=== PATIENT | male | born 1945 | race Caucasian/White ===

== ENCOUNTER 2023-06-20 19:05 | Emergency (ER) | payer OTHER, SELFPAY ==
[2023-06-20 19:06] VITALS: BMI 31.1
[2023-06-20 19:08] VITALS: BP 142/80
[2023-06-20 19:28] LABS: % Basophils 0.3 % (0-2); % Eosinophils 3.6 % (0-6); % Immature Granulocytes 0.1 % (0-0.5); % Lymphocytes 25.9 % (20.5-51.1); % Monocytes 12.1 % (1.7-9.3); Absolute Eosinophils 0.2 10^3/uL (0-0.7); Absolute Lymphocytes 1.8 10^3/uL (1.2-3.4); Absolute Monocytes 0.8 10^3/uL (0.1-0.6); Absolute Neutrophils 3.9 10^3/uL (1.4-6.5); Hematocrit 44.2 % (39.0-52.0); Hemoglobin 15.5 g/dL (13.0-18.0); Mean Corp Hgb Conc. 35.1 g/dL (33.0-37.0); Mean Corpuscular Hgb 33.3 pg (27.0-31.0); Mean Corpuscular Volume 95.1 fL (80.0-94.0); Mean Platelet Volume 8.9 fL (7.4-10.4); Nucleated Red Blood Cells % 0 % (-); Platelet Count 216 10^3/uL (130-400); Red Blood Cell Count 4.65 10^6/uL (4.70-6.10); Red Cell Dist. Width 14.6 % (11.5-14.5); White Blood Cell Count 6.8 10^3/uL (4.8-10.8)
[2023-06-20 19:30] LABS: Urine Albumin Negative (Neg - Trace); Urine Bilirubin Negative (Negative); Urine Character Clear (Clear); Urine Color Yellow; Urine Glucose Negative (Negative); Urine Ketone Negative (Negative); Urine Leukocyte Negative (Negative); Urine Nitrite Negative (Negative); Urine Occult Blood Negative (Negative); Urine Urobilinogen Negative (Neg - 1+)
[2023-06-20 19:45] LABS: ALT (SGPT) 46 U/L (0-50); AST (SGOT) 40 U/L (17-59); Albumin 4.5 g/dl (3.5-5.0); Alkaline Phosphatase 62 U/L (38-126); Blood Urea Nitrogen 14 mg/dl (9-20); Calcium 9.4 mg/dl (8.4-10.2); Carbon Dioxide 27 mmol/L (22-30); Chloride 105 mmol/L (98-107); Glucose 102 mg/dl (70-99); Lipase 98 U/L (23-300); Potassium 4.6 mmol/L (3.5-5.1); Sodium 138 mmol/L (135-145); Total Bilirubin 1.6 mg/dl (0.2-1.3); Total Protein 7.7 g/dl (6.3-8.2); eGFR > 60.00
[2023-06-20 21:27] VITALS: BP 129/71
[2023-06-20 22:00] VITALS: BP 132/81
--- NOTE | 2023-06-20 22:16 | ED.GENMED ---
History of Present Illness
General
Chief Complaint: Abdominal Pain
Source: patient and spouse
Exam Limitations: none
Time Seen by Provider: 06/20/23 21:51
Nursing documentation reviewed up to this point in time: agreed with
Travel History
Have you had any contact with someone who has COVID-19?: No
Do you have any symptoms of coronavirus? Fever > 100 degrees, chills, cough, shortness of breath, sore throat, loss of taste or smell, muscle aches, or headache?: No
History of Present Illness
History of Present Illness:
77 yo male w h/o L nephrectomy, HTN, constipation presents with generalized abdominal pain and no good BM for 3 weeks. Has had intermittent small BMs since. No nausea/vomiting.
Had endoscopy last month for epigastric pain that he and said was 'normal.' Last colonoscopy was 3 yrs ago and unremarkable per pt and .
Had similar episode 2 years ago when they were in [facility] and all lab work was normal and he felt better after they gave him an enema.
Past History
Past History
ED Past Medical History: HTN
ED Past Surgical History: Urological (L nephrectomy)
Review of Systems
Review of Systems
Allergies reviewed?: Yes
All Other Systems: ROS reviewed and negative except as documented in HPI and ROS
Constitutional: Denies fever
Respiratory: Denies trouble breathing
Cardiac: Denies chest pain
ABD/GI: Reports abdominal pain and constipated; Denies nausea, vomiting, diarrhea, bloody stools, black stools or anorexia
: Denies dysuria or difficulty voiding
Musculoskeletal: Reports no symptoms
Skin: Reports no symptoms
Neurological: Reports no symptoms
Phy Exam
Physical Exam
Physical Exam:
GENERAL: No acute distress. A&Ox3.
CONSTITUTIONAL: Afebrile.
ENMT: moist mucus membranes
RESPIRATORY: Regular respirations, nonlabored, lungs clear.
CARDIOVASCULAR: Regular rate and rhythm, no murmurs, no rubs.
GI: Soft, rotund, generally tender, no guarding, normal BS
Rectal: No stool in rectal vault
MUSCULOSKELETAL: Moves with ease. Well perfused.
SKIN: Warm, dry, pink
PSYCH: Normal mood and affect. Well kept, interactive and appropriate
NEUROLOGIC: Awake, alert and oriented. No focal neurological deficits
Course
Orders/Labs/Results
Orders:
Orders
06/20/23 19:20
CBC/With Diff [Complete Blood Count/With Diff] Urgent
CMP [Comprehensive Metabolic Panel] Urgent
Lipase Urgent
Urinalysis Reflex To Culture Urgent
Date Specimen was Collected: 06/20/23
Time Specimen was Collected: 19:13
06/20/23 22:16
0.9% Sodium Chloride 1000 ml [Nss] 1,000 ml IV BOLUS
06/20/23 22:34
CT Abd/pel Without Iv Or Oral Urgent
Comment:
Reason For Exam: general abd pain, constipation, only one kidney
06/20/23 23:36
Magnesium Citrate [Citroma] 300 ml PO ONCE ONE
Abnormal Lab Results
06/20/23
19:20
RBC 4.65 L 10^6/uL
(4.70-6.10)
MCV 95.1 H fL
(80.0-94.0)
MCH 33.3 H pg
(27.0-31.0)
RDW 14.6 H %
(11.5-14.5)
Absolute Monos (auto) 0.8 H 10^3/uL
(0.1-0.6)
Monocytes % 12.1 H %
(1.7-9.3)
Glucose 102 H mg/dl
(70-99)
Total Bilirubin 1.6 H mg/dl
(0.2-1.3)
03/06/24 19:20
06/20/23 19:20
Vital Signs
Initial and Last Documented VS:
Initial Vital Signs
Temp Pulse Resp BP Pulse Ox
98.3 F 68 19 142/80 95
06/20/23 19:08 06/20/23 19:08 06/20/23 19:08 06/20/23 19:08 06/20/23 19:08
Last Documented Vital Signs
Temp Pulse Resp BP Pulse Ox
98.3 F 68 19 135/83 94
06/20/23 19:08 06/20/23 19:08 06/20/23 19:08 06/20/23 23:59 06/20/23 23:59
MDM/Problems Addressed
Differential Diagnosis Includes:
Constipation, obstruction
MDM/Problems Addressed:
77 yo male w h/o L nephrectomy, HTN, constipation presents with generalized abdominal pain and no good BM for 3 weeks. Has had intermittent small BMs since. No nausea/vomiting.
Had endoscopy last month for epigastric pain that he and said was 'normal.' Last colonoscopy was 3 yrs ago and unremarkable per pt and .
Had similar episode 2 years ago when they were in [place] and all lab work was normal and he felt better after they gave him an enema.
06/20/2023 2143 PM
CBC, CMP normal
Lipase normal
UA normal
CT abdomen pelvis plain due to the fact that he has only 1 kidney, radiology report reviewed: IMPRESSION:
Markedly limited study without oral or intravenous contrast.
Prior left nephrectomy. Surgical clips noted in left nephrectomy bed.
Cholelithiasis. No findings to suggest biliary tract dilatation.
Coronary artery calcifications.
Moderate volume colonic stool, most prominent in the right colon. No intestinal obstruction or free air.
Small bilateral fat only containing inguinal hernias and possible tiny fat only containing umbilical hernia.
Unremarkable appendix.
Patient given a bottle of mag citrate.
Patient ambulated out with normal gait upon discharge.
*Critical Care Note
Total Time (30-74mins, 75-104mins- exclusive of procedures): Not Applicable
ED Attending Note
-
Portions of this chart may have been created with voice recognition software.� Occasional wrong word or��sound alike� substitutions may have occurred due to the inherent limitations of voice recognition software.
Discharge Plan
Departure
Patient Disposition: Home (Routine Discharge)
Date of Disposition: 06/20/23
Time of Disposition: 23:46
Patient with high blood pressure during this ER visit?: No
Condition: Good
Discharge Problem:
Constipation
Instructions: Constipation, Adult (DC), Abdominal Pain
Referrals:
Checo Sequeira MD [Family Provider] - Follow up in 5-7 days
Activity Restrictions/Additional Instructions:
As we discussed, drink at least 8 glasses of liquid daily
Interventions
Interventions:
*General Assessment Last Done: 06/20/23 21:24
*ED COVID-19 Vaccine History Last Done: 06/20/23 21:24
HH-Zgcypj-Ezmfqvwkgh Assessment Last Done: 06/20/23 22:48
Discharge Date and Time
Discharge Date/Time: 06/21/23 00:04
[2023-06-20] MEDS: CITROMA 300 ML PO (23:43)
[2023-06-20 23:59] VITALS: BP 135/83
== END 2023-06-21 00:04 | disposition home or self-care (01) ==
LOC: EMR 19:05
PROVIDERS: Student in an Organized Health Care Education/Training Program; EMERGENCY PHYSICIAN Emergency Medicine; FAMILY PHYSICIAN Internal Medicine
DX: K59.00 Constipation, unspecified (principal); I10 Essential (primary) hypertension
CPT/HCPCS: 99284; 74176; 80053; 81003; 83690; 85025